=== PATIENT | male | born 1935 | race Caucasian/White ===

== ENCOUNTER 2018-12-13 18:34 | Observation (INO) | payer OTHER ==
[2018-12-13] MEDS ORDERED: LORazepam 2 MG/ML VIAL ONE ×2 (18:42→20:34)
[2018-12-13] MEDS ORDERED: LIDOCAINE 1% W/EPI 1:100,000 MDV 20 ML VIAL ONE (18:51)
[2018-12-13 19:24] LABS: Absolute Lymphocytes (CBC) 2.8 K/uL (0.7-4.9); Basophils % 0.6 % (0-1.3); Lymphocytes % 29.2 % (15.3-44.8); MPV 9.4 fL (7.6-11.3); RBC Red Blood Cell Count 3.89 M/uL (4.33-5.43)
[2018-12-13] MEDS ORDERED: TETANUS & DIPHTHERIA TOX,ADULT 0.5 ML VIAL ONE (19:30)
[2018-12-13] MEDS ORDERED: CEFAZOLIN/SWI 1gm 1 GM/10 ML SYR ONE (19:30)
[2018-12-13] MEDS ORDERED: NA CHLORIDE 0.9% 1,000 ML ONE (19:30)
[2018-12-13] MEDS ORDERED: THIAMINE 200 MG/2 ML INJ ONE (19:30)
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
[2018-12-13 20:33] LABS: Albumin 3.2 g/dL (3.4-5.0); Bilirubin Direct 0.2 mg/dL (0-0.2); Bilirubin Total 0.4 mg/dL (0.2-1.0); Potassium 3.6 mmol/L (3.5-5.1); Protein, Total 7.4 g/dL (6.4-8.2)
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
[2018-12-13] MEDS ORDERED: ACETAMINOPHEN 500 MG TAB PO PRN (21:12)
[2018-12-13] MEDS ORDERED: ONDANSETRON 4 MG/2 ML VIAL IV PRN (21:12)
[2018-12-13] MEDS: NA CHLORIDE 0.9% 1,000 ML IV SCH (22:00)
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
[2018-12-14] MEDS ORDERED: LORazepam 2 MG/ML VIAL IV PRN (02:10)
[2018-12-14] MEDS ORDERED: ACETAMINOPHEN 650MG/RECT SUPP PR PRN (02:10)
[2018-12-14] MEDS ORDERED: IPRATROPIUM BROM 0.5MG/2.5ML NEB PRN (02:10)
[2018-12-14] MEDS ORDERED: ONDANSETRON 4 MG/2 ML VIAL IV PRN (02:10)
[2018-12-14] MEDS ORDERED: ALBUTEROL 2.5 MG/3 ML NEB SOL NEB PRN (02:10)
[2018-12-14] MEDS: D5 0.45 NS 1,000 ML IV SCH ×2 (02:10→12:43)
[2018-12-14] MEDS ORDERED: HYDROCODONE/APAP 7.5/325 MG TAB PO PRN (02:10)
[2018-12-14] MEDS ORDERED: ACETAMINOPHEN 500 MG TAB PO PRN (02:10)
[2018-12-14] MEDS ORDERED: TRAMADOL HCL 50 MG TAB PO PRN (02:10)
[2018-12-14 02:34] VITALS: BMI 17.9
[2018-12-14 05:04] LABS: Urine Blood 2+ (NEG); Urine Glucose NEGATIVE (NEG); Urine Protein NEGATIVE (NEG)
[2018-12-14 05:35] LABS: Basophils % 0.4 % (0-1.3); Hematocrit 38.6 % (39.6-49.0); Lymphocytes % 13.8 % (15.3-44.8); MPV 8.4 fL (7.6-11.3); RBC Red Blood Cell Count 3.93 M/uL (4.33-5.43)
[2018-12-14 05:41] LABS: Potassium 3.9 mmol/L (3.5-5.1)
[2018-12-14 05:51] LABS: Magnesium 1.7 mg/dL (1.8-2.4); Thyroid Stimulating Hormone 2.24 uIU/mL (0.360-3.740)
[2018-12-14] MEDS ORDERED: MAGNESIUM SULFATE 1 gm IVPB 1 GM/100 ML BAG IV ONE (06:22)
[2018-12-14] MEDS ORDERED: ENOXAPARIN 40 MG/0.4 ML SQ SCH (09:00)
[2018-12-14] MEDS ORDERED: FOLIC ACID 1 MG, MULTIVITAMINS INJ 10 ML, THIAMINE HCL 100 MG in NA CHLORIDE 0.9% 1,000 ML IV SCH (09:00)
[2018-12-14] MEDS: chlordiazePOXIDE HCl 5 MG CAP PO SCH ×2 (09:43→14:14)
[2018-12-14] MEDS: NA CHLORIDE 0.9% 1,000 ML IV SCH (09:44)
[2018-12-14 11:09] LABS: Urine Appearance CLEAR; Urine Bilirubin NEGATIVE (NEG); Urine Blood 1+ (NEG); Urine Color YELLOW; Urine Glucose NEGATIVE (NEG); Urine Protein TRACE (NEG); Urine Specific Gravity 1.015 (1.005-1.030); Urine Urobilinogen 0.2 mg/dL (0.2-1.0)
[2018-12-14 11:21] LABS: Urine Microscopic Reflex ORDER UMIC
[2018-12-14 11:27] LABS: Urine Bacteria NONE SEEN /HPF (NONE SEEN); Urine Culture Reflex Order NOT NEEDED
[2018-12-14] MEDS ORDERED: POTASSIUM CL SA 10 MEQ TAB PO ONE (13:00)
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
[2018-12-14 15:58] VITALS: O2SAT 95
[2018-12-14 17:11] VITALS: BP 133/84; TEMP 98.6
[2018-12-14] MEDS ORDERED: ENSURE ENLIVE 237 ML CAN PO SCH (21:00)
--- NOTE | 2018-12-15 04:46 | EKG ---
Test Date: 2018-12-13 Test Time: 18:52:50 Animal Control Officer: SEVERINO MEASUREMENT RESULTS: Intervals: Rate: 92 AL: 230 QRSD: 74 QT: 358 QTc: 442 [place]: P: 87 AL: 230 QRS: -55 T: 70 INTERPRETIVE STATEMENTS: Sinus rhythm with 1st degree AV block Left axis deviation Non specific ST abnormality Abnormal ECG No previous ECG available for comparison Electronically Signed On 12-15-18 04:45:25 CDT by Yandel Mathew
== END 2018-12-14 17:21 | disposition home or self-care (01) ==
LOC: ER 18:34 → ERHOLD 21:11 → 4TH 12-14 07:49
PROVIDERS: ADMIT Surgery; ATTEND Surgery
PROC: 0JQ10ZZ Repair Face Subcutaneous Tissue and Fascia, Open Approach (ICD-10-PCS; principal; 2018-12-13)
DX: S01.81XA Laceration without foreign body of other part of head, initial encounter (principal); V43.52XA Car driver injured in collision with other type car in traffic accident, initial encounter; G93.40 Encephalopathy, unspecified; N18.3 Chronic kidney disease, stage 3 (moderate); N17.9 Acute kidney failure, unspecified; J44.9 Chronic obstructive pulmonary disease, unspecified; D49.2 Neoplasm of unspecified behavior of bone, soft tissue, and skin; Z23 Encounter for immunization; F17.210 Nicotine dependence, cigarettes, uncomplicated
CPT/HCPCS: 93005; 85025 ×2; 80048 ×2; 36415; 80320; 86900; 83735; 86850; 86901; 80076; 84443; 84439; 83690; 70450; 72125; 71260; 74177; 90471; 90714; 97112; 97116; 97161; 94640; 96375; 96374; 99285; 12011; Q9967; J3411 ×2; J3475; J0690; J7799 ×2; J7030 ×4; G0378 ×3; 81003; 81015; J1650